=== PATIENT | female | born 1945 | race Caucasian/White ===

== ENCOUNTER 2019-07-13 12:07 | Emergency (ER) | payer MEDICARE, OTHER ==
[~2019-07-13] VITALS: Ht 165.1 cm; Wt 75.3 kg
[2019-07-13 12:17] VITALS: BP 140/68
[2019-07-13] MEDS ORDERED: Ketorolac 60mg Inj IM ONE (12:30)
--- NOTE | 2019-07-13 12:30 | NUR ---
ED Nurse Note: Patient presents to ER via wheelchiar due to pain across lower back after tripping over a furniture. Patient is awake, alert and orientedx4. Patient states that she lost balance and fall on her back. Patient states she hit back of her head but denies any pain in her head. Denies visual changes. Per pt, lower back pain is worse with movement and walking, 9/10 sharp pain. skin is intact, warm. VSS. Patient denies n/v.
--- NOTE | 2019-07-13 13:03 | NUR ---
ED Nurse Note: will draw blood after pt come back from CT.
[2019-07-13 13:39] VITALS: BP 143/79
--- NOTE | 2019-07-13 13:43 | Emergency Room Report ---
History of Present Illness General Chief Complaint: Multiple Trauma/Fall Source: Patient, EMS Present Illness HPI Patient presents after a fall Reports that she tripped over some material that were using to move at her daughter's place falling backwards and hitting her lower back Denies any lapse of consciousness denies any chest pain denies any vomiting or diarrhea patient's pain is localized to the mid lower back area 7 out of 10 worse with moving Denies any neuropathy in the lower extremities denies any loss of control of bowel or urination Allergies: Coded Allergies: No Known Allergies (Unverified , 07/13/19) Patient History Past Medical History: see triage record Now: No Reviewed Nursing Documentation: PMH: Agreed; PSxH: Agreed Nursing Documentation-PMH Past Medical History: No History, Except For Review of Systems All Other Systems: negative except mentioned in HPI Physical Exam Vital Signs Date Time Temp Pulse Resp B/P (MAP) Pulse Ox O2 Delivery O2 Flow Rate FiO2 07/13/19 12:03 98.4 83 16 123/69 (87) 99 Room Air Sp02 EP Interpretation: reviewed, normal General Appearance: well appearing, no apparent distress Head: normocephalic, atraumatic Eyes: bilateral eye PERRL, bilateral eye EOMI ENT: hearing grossly normal, normal pharynx Neck: full range of motion, supple Respiratory: lungs clear, no respiratory distress, no retraction Cardiovascular #1: regular rate, rhythm Gastrointestinal: non tender, soft Genitourinary: no CVA tenderness Musculoskeletal: normal inspection - Equal detention worker bilaterally, moving both lower extremity without focal deficit Neurologic: alert, oriented x3, other - Reproducible discomfort palpation paraspinal L2-L3-L4 region Psychiatric: normal inspection Skin: no rash Lymphatic: no adenopathy Medical Decision Making Diagnostic Impression: Primary Impression: Lumbar vertebral fracture ER Course Given the patient's history and presentation baseline blood work were initiated along with imaging studies this does sound to be fairly mechanical in nature Patient's imaging does show what was described as a mild lumbar spine fracture no obvious protrusion patient continues not to have any neurological deficits There are no other neuropathy described and repeat exam is appropriate Patient describes being able to walk to the restroom with minimal discomfort She will require close outpatient orthopedic/neurosurgical evaluation however at this time is stable for outpatient disposition she reports that she has taken Kirk in the past and will be acceptable to that medication I did want to speak to the daughter as well however patient reports that she is at home packing And she feels well being discharged Labs Test 07/13/19 13:35 White Blood Count 8.9 K/UL (4.8-10.8) Red Blood Count 5.10 M/UL (4.20-5.40) Hemoglobin 15.9 G/DL (12.0-16.0) Hematocrit 48.3 % (37.0-47.0) Mean Corpuscular Volume 95 FL (80-99) Mean Corpuscular Hemoglobin 31.1 PG (27.0-31.0) Mean Corpuscular Hemoglobin Concent 32.8 G/DL (32.0-36.0) Red Cell Distribution Width 11.9 % (11.6-14.8) Platelet Count 181 K/UL (150-450) Mean Platelet Volume 5.8 FL (6.5-10.1) Neutrophils (%) (Auto) 76.7 % (45.0-75.0) Lymphocytes (%) (Auto) 16.3 % (20.0-45.0) Monocytes (%) (Auto) 6.2 % (1.0-10.0) Eosinophils (%) (Auto) 0.3 % (0.0-3.0) Basophils (%) (Auto) 0.5 % (0.0-2.0) Sodium Level 142 MMOL/L (136-145) Potassium Level 3.3 MMOL/L (3.5-5.1) Chloride Level 107 MMOL/L (98-107) Carbon Dioxide Level 28 MMOL/L (21-32) Anion Gap 8 mmol/L (5-15) Blood Urea Nitrogen 8 mg/dL (7-18) Creatinine 0.6 MG/DL (0.55-1.30) Estimat Glomerular Filtration Rate mL/min (>60) Glucose Level 100 MG/DL (74-106) Calcium Level 10.3 MG/DL (8.5-10.1) Rhythm Strip Diag. Results EP Interpretation: yes Rate: 77 Rhythm: NSR, no PVC's, no ectopy CT/MRI/US Diagnostic Results CT/MRI/US Diagnostic Results : Impression CT L-spineIMPRESSION: Acute, mild fracture of the superior anterior endplate of L4 vertebra with minimal loss of height involving this portion of the vertebra. No retropulsion. Generalized osteopenia. Degenerative changes as described above Atherosclerotic vascular disease Nonobstructive stones within both kidneys CT pelvicIMPRESSION: No acute injury identified. Multiple additional incidental findings as described above Last Vital Signs Date Time Temp Pulse Resp B/P (MAP) Pulse Ox O2 Delivery O2 Flow Rate FiO2 07/13/19 13:39 84 17 143/79 97 Room Air 07/13/19 12:17 97.4 Status: improved Disposition: HOME, SELF-CARE Condition: Improved Scripts Hydrocodone Bit/Acetaminophen 5-325* (NORCO 5-325*) 1 Each Tablet 1 TAB ORAL Q6H PRN for For Pain, #10 TAB 0 Refills Prov: Laura Machado DO 07/13/19 Referrals: NON PHYSICIAN (PCP) Additional Instructions: Patient is provided with the discharge instructions notified to follow up with primary doctor in the next 2-3 days otherwise return to the er with any worsening symptoms. Please note that this report is being documented using [employer] technology. This can lead to erroneous entry secondary to incorrect interpretation by the dictating instrument. Laura Machado DO Jul 13, 2019 13:43
[2019-07-13 13:48] LABS: BASOPHILS % (AUTO) 0.5 % (0.0-2.0); EOSINOPHILS % (AUTO) 0.3 % (0.0-3.0); HEMATOCRIT 48.3 % (37.0-47.0); HEMOGLOBIN 15.9 G/DL (12.0-16.0); LYMPHOCYTES % (AUTO) 16.3 % (20.0-45.0); MEAN CORPUSCULAR VOLUME 95 FL (80-99); MONOCYTES % (AUTO) 6.2 % (1.0-10.0); NEUTROPHILS % (AUTO) 76.7 % (45.0-75.0); PLATELET COUNT 181 K/UL (150-450); RED CELL DISTRIBUTION WIDTH 11.9 % (11.6-14.8); WHITE BLOOD COUNT 8.9 K/UL (4.8-10.8)
[2019-07-13 14:02] LABS: ANION GAP 8 mmol/L (5-15); BLOOD UREA NITROGEN 8 mg/dL (7-18); CALCIUM 10.3 MG/DL (8.5-10.1); CARBON DIOXIDE 28 MMOL/L (21-32); CHLORIDE 107 MMOL/L (98-107); CREATININE 0.6 MG/DL (0.55-1.30); POTASSIUM 3.3 MMOL/L (3.5-5.1); SODIUM 142 MMOL/L (136-145)
--- NOTE | 2019-07-13 14:12 | Diagnostic Imaging Report ---
Indication: Back pain Technique: Continuous helical transaxial imaging of the lumbar spine was obtained. No IV contrast was administered. Coronal 2-D reformats were also obtained. Study obtained in a Siemens sensation [address] Total Dose length Product (DLP): 731.[address] Dose Index Volume (CTDIvol): 19.4 mGy Comparison: None Findings: There is a mild, acute appearing fracture involving the anterior superior endplate of the L4 vertebral body with mild associated loss of height. This involves just the anterior portion of the vertebra and is a stable fracture. There is no retropulsion. Bones are osteopenic. There is an anterolisthesis present at L5-S1. There is suggestion of narrowing of the neural foramen at this level bilaterally with hypertrophied facets demonstrated at this level as well as within L4-5. Mild marginal endplate spurs are demonstrated at L3-4, L4-5 and L5-S1. Aorta is moderately calcified. There are calcific densities present within both kidneys consistent with nonobstructive stones. IMPRESSION: Acute, mild fracture of the superior anterior endplate of L4 vertebra with minimal loss of height involving this portion of the vertebra. No retropulsion. Generalized osteopenia. Degenerative changes as described above Atherosclerotic vascular disease Nonobstructive stones within both kidneys The CT scanner at [facility] is accredited by the [employer] and the scans are performed using dose optimization techniques as appropriate to a performed exam including Automatic Exposure control.
--- NOTE | 2019-07-13 14:15 | Diagnostic Imaging Report ---
Indication: Pelvic pain. Trauma Technique: Continuous helical transaxial imaging of the pelvis was obtained from the iliac crest to the pubic symphysis, protocol for evaluation of the osseous structures and trauma. Coronal 2-D reformats were also obtained. Study obtained in a Siemens sensation [address] Intravenous non-ionic contrast was administered. Total Dose length Product (DLP): [address] Dose Index Volume (CTDIvol): 32.8 mGy Comparison: None Findings: No acute fracture is identified. Generalized osteopenia demonstrated. There is no malalignment. The hips appears symmetric. Diverticula incidentally noted within the sigmoid colon moderate in degree. Calcification of the aorta and iliac arteries demonstrated. Small nodes are seen in the mesentery nonspecific. A few uterine calcifications are present probably related to fibroids. Urinary bladder is mildly distended. IMPRESSION: No acute injury identified. Multiple additional incidental findings as described above The CT scanner at [facility] is accredited by the [employer] and the scans are performed using dose optimization techniques as appropriate to a performed exam including Automatic Exposure control.
[2019-07-13] MEDS ORDERED: NORCO 5-325 TA1 EACH ORAL (14:22)
[2019-07-13 14:30] VITALS: BP 143/74
[2019-07-13 15:20] VITALS: BP 139/79
[2019-07-13 15:29] VITALS: BP 139/79
--- NOTE | 2019-07-13 15:29 | NUR ---
ER DISCHARGE NOTE: Patient is cleared to be discharged per ERMD, pt is aox4, on room air, with stable vital signs. pt was given dc and prescription instructions, pt was able to verbalize understanding, pt id band was removed. patient called [employer]. pt took all belongings.
--- NOTE | 2019-07-15 12:50 | Cardiology Report ---
APPROVED REPORT EKG Measurement Heart [id number] Normal sinus rhythm Normal ECG
== END 2019-07-13 15:29 | disposition home or self-care (01) ==
LOC: EDBD 12:07 → EMR 12:14
DX: S32.049A Unspecified fracture of fourth lumbar vertebra, initial encounter for closed fracture (principal); M85.80 Other specified disorders of bone density and structure, unspecified site; N20.0 Calculus of kidney; I70.90 Unspecified atherosclerosis; W01.0XXA Fall on same level from slipping, tripping and stumbling without subsequent striking against object, initial encounter; Y92.009 Unspecified place in unspecified non-institutional (private) residence as the place of occurrence of the external cause
CPT/HCPCS: 36415; 72131; 72192; 80048; 85025; 93005; 96372; 99284